=== PATIENT | female | born 1995 | race Caucasian/White ===

== ENCOUNTER 2022-06-20 15:14 | Inpatient (IN) | payer MEDICAID, SELFPAY ==
[2022-06-20] VITALS (12 sets, daily range): BP systolic 115–132; BP diastolic 64–84; PULSE 64–86; RESP 15–17; TEMP 36.5–36.9; O2SAT 97–99
[2022-06-20] MEDS: lactated ringers 1,000 ML 999 ML (15:15)
[2022-06-20] MEDS: ceFAZolin 2,000 MG in sodium chloride 0.9% (plus) 50 ML 100 MG IV (15:18)
[2022-06-20 15:40] LABS: Basophils % 0.1 %; Hematocrit 28.4 % (37.0-47.0); Hemoglobin 8.7 g/dL (11.5-15.3); Lymphocytes % 6.6 %; Mean Corpuscular HGB Conc 30.6 g/dL (30.0-36.0); Mean Corpuscular Hemoglobin 24.5 pg (28.0-34.0); Mean Platelet Volume 10.7 fL (7.4-10.4); Monocytes # 1.3 10^3/uL (0.2-0.9); Neutrophils # 13.22 10^3/uL (1.8-7.7); Neutrophils % 84.7 %; Nucleated Red Blood Cells % 0 %; Platelet Count 384 10^3/cmm (130-400); Red Blood Count 3.55 10^6/uL (4.1-5.3); Red Cell Distribution Width 14.5 % (12.1-15.1); White Blood Count 15.6 10^3/uL (4.0-10.0)
--- NOTE | 2022-06-20 15:57 | XRR_ITS ---
PROCEDURE INFORMATION: Exam: XR Abdomen Exam date and time: 06/20/2022 4:02 PM Age: 26 years old Clinical indication: Abdominal pain; Generalized; Prior surgery; Surgery date: Post-operative (0-2 days); Surgery type: Emergency c section; Additional info: Emergency csection TECHNIQUE: Imaging protocol: Radiologic exam of the abdomen. Views: Frontal supine view of the abdomen. 1 View. COMPARISON: No relevant prior studies available. FINDINGS: Gastrointestinal tract: Normal. No bowel dilation. Organs: Suspected enlarged likely post uterus seen over the lower abdomen and pelvis. Bones/joints: Unremarkable. XR/XR KUB portable [id number] IMPRESSION: No acute findings.
--- NOTE | 2022-06-20 16:33 | ANES.PREANE2 ---
Pre-Anesthetic Assessment Social No alcohol and No tobacco Exam alert, oriented x 3, clear to auscultation bilaterally and regular rate & rhythm Airway Submandibular: within normal limits Cervical ROM: within normal limits Mallampati: Class II Dentition: other (profound dental disease ) Pulmonary None reported CV/HEM None reported Anesthetic Plan ASA status: 2E Anesthesia: General Data Anesthesia 06/20/22 15:15 Short CBC 06/20/22 Range/Units 15:15 WBC 15.6 H (4.0-10.0) 10^3/uL Hgb 8.7 L (11.5-15.3) g/dL Hct 28.4 L (37.0-47.0) % MCV 80.0 L (81-99) fl Plt Count 384 (130-400) 10^3/cmm Neut % (Auto) 84.7 % Neut # (Auto) 13.22 H (1.8-7.7) 10^3/uL Blood Bank 06/20/22 15:15 Blood Type A Positive Rho(D) Type Positive Cardiac Studies: No Data to Display
--- NOTE | 2022-06-20 16:59 | PM.HP ---
Providers/Chief Complaint Admitting Physician: Shamika Lama MD Chief Complaint: possible labor History of Present Illness Krystle Samson is a 26 year old female with a history of 2 prior sections who presented to the ER complaining of body parts hanging out. She has had no care during this . She has no idea what her due date is. She has had 2 prior sections. Review of Systems General: Reports: Other ( parts hanging out the vagina, no vaginal bleeding, no loss of fluid, ) Medications/Allergies Allergies Allergy/AdvReac Type Severity Reaction Status Date / Time hydrocodone Allergy ADR-Depress Verified 06/20/22 20:28 ion Physical Exam Narrative: The patient is pale and cachectic with poor dentition. She is alert and oriented and answering questions appropriately. Her abdomen is obviously gravid and appears to be large enough for full term. Her labia were and there was a visible deep purple foot that was possibly encased in a thin membrane. I did not perform a manual exam to risk rupture of the membranes. Data 06/20/22 15:15 A&P Assessment and plan (1) Breech presentation of fetus palpable vaginally: heart tones were obtained by nursing near the fundus. Patient was taken back for emergency section. (2) History of 2 sections: Emergent repeat section (3) No care in current : The small portion of toes that I can see do appear , no further than 34 wks. Her abdomen is very protruberant and is consistent with term. we will need to draw labs. Attestations Medical Necessity Statement*: emergent surgery and postoperative care Coding Level of Care Code Acute Code for Chg Fwd Diagnoses Breech presentation of fetus palpable vaginally O32.1XX0 History of 2 sections Z98.891 No care in current O09.30
--- NOTE | 2022-06-20 17:08 | PM.OP ---
Operative Report Date of procedure: June 20, 2022 Pre-op diagnosis: Footling breech presentation with foot at the introitus History of prior section x 2 No care Anemia Post-op diagnosis: No care Emergent repeat low transverse section Monochorionic diamniotic twin gestation (estimated 26-28 weeks based on Frazier score) demise of twin A Footling breech presentation of twin A Viable premature twin B in vertex presentation Polyhydramnios of twin B Procedure done: Emergent low transverse section Via Pfannenstiel skin incision Specimens removed/disposition: Twin A female, premature demise with initial state of decomposition especially of head contents, estimated 26-28 weeks gestation. 740 grams Twin B female, premature, viable, estimated 26-28 week gestation (based on Frazier score). weight 2# 3.6 oz. Pathology: Monochorionic diamniotic placenta Surgeon: Shamika Lama MD Anesthesia: General Estimated blood loss (mL): 500 IV fluids (mL): 1,300 Urine output: navas placed after procedure ended Procedure: After informed consent the patient was taken to the OR where general anesthesia was administered. She was quickly prepped and draped in normal sterile fashion in dorsal supine position with a left lateral tilt. After general anesthesia was administered a Pfannenstiel skin incision was made and carried through sharply to the fascia. The fascia was then entered sharply using the blade. As soon as the fascia was entered the peritoneum began to bulge through it. There was definitely diastases of the rectus muscles. The fascia was grasped with Whitefield clamps and the underlying tissue was dissected off using the Mayos. The peritoneum was then entered bluntly using fingers and the incision site was manually stretched. The bladder was slightly bulging and the vesicouterine peritoneum was entered sharply using the Metzenbaums and a bladder flap was created digitally. The bladder was then pushed inferiorly under the bladder blade. Uterine incision was made in a transverse fashion in the lower uterine segment. Amniotic rupture of membranes was performed sharply and a small amount of purple-tinged fluid was released. The 's back was facing up, visible a deep purple, and I immediately followed it down around the buttocks to grab a hold of both legs. The infant was then delivered all at once with only slight fundal pressure. Upon delivery it was obvious that the infant had been for a while as the skull was both flattened and boggy. There was no movement and no sign of life. The entire infant was a very deep purple color. The cord was clamped and cut and the was handed to the waiting pediatric doctor. Dr. Montelongo and his team initially started resuscitation but I informed them that the was already decomposing and there were visible clots within the umbilical cord. At that time Dr. Montelongo confirmed there was no heartbeat. It was obvious there was a second bulging bag of fluid from the uterus. I waited briefly to rupture the membranes to allow the pediatric team to ready themselves for a second delivery. Amniotic rupture of membranes was performed sharply using an Allis clamp and a very large amount of yellow-tinged fluid came pouring out. Twin B was in vertex position and was easily delivered delivered vertex with out any complication. The cord was clamped and cut and the was gently handed off to the waiting pediatric team. We tried to obtain cord blood pH but unfortunately did not get enough of a sample. Traction was placed on cord B to help deliver the placenta but immediately avulsed. The placenta was then manually extracted and later observed to be dichorionic, monoamniotic. Once the placenta delivered the uterus was exteriorized from the abdomen and a dry sponge was used to clear the uterus of clots and debris. Uterine incision was repaired using 0 chromic in a running locked fashion. A second layer of the same suture was used in an imbricating manner. Excellent hemostasis was obtained. The uterus was then returned to the abdomen. Irrigation was used to Clear the gutters of clots and debris and the uterine incision was reinspected for hemostasis. The peritoneum was gently reapproximated in an interrupted fashion using 4-0 Vicryl. The fascia was then reapproximated using 0 Vicryl in a running fashion. The subcutaneous tissue was irrigated and reapproximated using 4-0 Vicryl. At this point a sterile glue drape was placed over the incision site and an x-ray was performed in place of instrument count. I visualized the x-ray to be free of any foreign bodies. The skin was then reapproximated using ximena. A pressure bandage was applied. After the procedure ended but before the patient was awakened nursing placed a Navas. Apple juice colored urine was present. Patient was awakened to the OR and went to recovery in stable considiton.
[2022-06-20 17:25] LABS: Amphetamines Screen Urine Negative (Negative); Barbiturates Screen Urine Negative (Negative); Benzodiazepines Screen Urine Negative (Negative); Cocaine Screen Urine Negative (Negative); Opiate Screen Urine Negative (Negative); PCP Screen Urine Negative (Negative); THC Screen Urine Negative (Negative)
--- NOTE | 2022-06-20 20:29 | PC.NURSE ---
1505 - Dr. Lama notified of patient arrival and vaginal exam. 1505 - Anesthesia notified of emergent 1509 - Dr. Montelongo notified of emergent 1515 - Respiratory notified of emergent 1515 - Room time in OR.
--- NOTE | 2022-06-20 20:34 | PC.NURSE ---
1505 - Cervical exam Dayanna Alvarez RN went to perform an SVE and noted a footling presentation. parts and amniotic sack visible.
[2022-06-21 00:24] VITALS: BP 128/70; PULSE 69; RESP 16; TEMP 36.9; O2SAT 97
[2022-06-21] MEDS: ketorolac 30 mg/mL INJ IVP ×3 (01:21→13:54)
[2022-06-21 02:26] VITALS: BP 104/63; PULSE 80; RESP 16; TEMP 37; O2SAT 97
[2022-06-21] MEDS: HYDROcodone-acetaminophen 5-325 mg Tablet PO ×4 (02:42→22:38)
[2022-06-21 03:09] VITALS: BP 117/69; PULSE 81
--- NOTE | 2022-06-21 03:10 | PC.NURSE ---
patient called out this nurse responded to room. Patient stated she felt a gush while sitting in the chair, observed a moderate amount of blood on chux pad. assisted patient back to bed, during transfer patient felt unstable, once back in bed fundal massage was preformed uterus was firm with massage and bleeding at that time was scant. Telfa, ABD and foam tape were found to be falling off, dressing removed and replaced with new Telfa, ABD and foam tape. patient resting comfortably at this time.
[2022-06-21] MEDS: sodium chloride 0.9% 500 ML 999 ML IV (07:00)
[2022-06-21] MEDS: prenatal vitamin Capsule 1 CAP PO (07:38)
[2022-06-21] MEDS: ferrous sulfate EC 325 mg Tablet PO ×2 (07:38→18:37)
[2022-06-21] MEDS: dextrose 5%-lactated ringers 1,000 ML 125 ML IV ×2 (07:38→13:56)
[2022-06-21 08:18] LABS: HIV 1 & 2 Antibody Non-Reactive (Non-Reactiv); HIV 1 & 2 Antigen Non-Reactive (Non-Reactiv)
[2022-06-21 08:19] LABS: Hepatitis B Surface Antigen Non-Reactive (Nonreactive); Rubella IgG 10.3 IU/mL (0.0-10.0)
[2022-06-21 08:24] LABS: Rapid Plasma Reagin Syphilis Nonreactive (Nonreactive)
[2022-06-21 08:33] LABS: Hematocrit 23.7 % (37.0-47.0); Hemoglobin 7.1 g/dL (11.5-15.3); Mean Corpuscular Hemoglobin 24.2 pg (28.0-34.0); Mean Corpuscular Volume 80.9 fl (81-99); Mean Platelet Volume 10.9 fL (7.4-10.4); Platelet Count 258 10^3/cmm (130-400); Red Blood Count 2.93 10^6/uL (4.1-5.3); Red Cell Distribution Width 14.6 % (12.1-15.1); White Blood Count 10.8 10^3/uL (4.0-10.0)
--- NOTE | 2022-06-21 09:15 | PC.NURSE ---
Sara with [facility] DFS to patient bedside for rounding. Safety care plan with patient made by hr assistant. Patient is to have follow up care set up at discharge. This RN spoke with [facility] social services assistant to establish medicaid. Keena with states she will find out if patient will need a consult from her or if an email sent to medicaid office and follow up phone call to patient made will be done. She will call back to OB department and follow up. LISA LIMA
[2022-06-21 10:30] VITALS: BP 133/76; PULSE 80; RESP 16; TEMP 36.5; O2SAT 98
[2022-06-21 15:57] VITALS: BP 113/74; PULSE 58; TEMP 36.4; O2SAT 99
--- NOTE | 2022-06-21 17:53 | PM.PN ---
Subjective Subjective: POD #1 ambulating, taking liquids but has not passed flatus. Vitals/I&O/Wt Last Vital Signs Temp 97.5 F L 06/21/22 15:57 Pulse 58 L 06/21/22 15:57 Resp 16 06/21/22 10:30 BP 113/74 06/21/22 15:57 Pulse Ox 99 06/21/22 15:57 O2 Del Method 06/21/22 15:57 06/21/22 06/21/22 06/21/22 06:59 14:59 22:59 Intake Total 787.5 / 787.5 Output Total 675 / 1125 350 / 350 50 / 400 Balance -675 / -25 437.5 / 437.5 -50 / 387.5 Physical Exam Narrative: Alert and oriented sitting up in bed, drinking water. Heart regular rate and rhythm, lungs clear to auscultation bilaterally, abdomen is soft, fundus is firm, tenderness is out of proportion as she flinches before my hand even touches her abdomen. No calf tenderness, no edema Data 06/21/22 06:54 Micro: Microbiology 06/20/22 14:25 Chlamydia trachomatis (TERESA) - Final Urine Random Neisseria gonorrhoeae (TERESA) - Final A&P Assessment and plan (1) Status post repeat low transverse section: Encourage ambulation, encourage clear liquids with calories such as Sprite and chicken broth. Routine postoperative care (2) No care in current : (3) , twin with loss of one fetus, delivered: (4) Breech presentation of fetus palpable vaginally: (5) History of 2 sections: (6) Anemia: Bleeding has been light to average. She was anemic upon presentation. She has not had any tachycardia or dizziness. Attestations Medical Necessity Statement*: Routine postoperative and care Coding Level of Care Code Acute Code for Chg Fwd Diagnoses Status post repeat low transverse section Z98.891 No care in current O09.30 , twin with loss of one fetus, delivered Breech presentation of fetus palpable vaginally O32.1XX0 History of 2 sections Z98.891 Anemia D64.9
[2022-06-21] MEDS: docusate sodium 100 mg Capsule PO (18:37)
[2022-06-21] MEDS: simethicone 80 mg Chew PO (21:48)
[2022-06-21 22:27] VITALS: BP 118/76; PULSE 61; RESP 16; TEMP 36.6
--- NOTE | 2022-06-22 01:01 | PC.NURSE ---
16 fr latex urinary catheter removed 06/20/22 at 2227. 10 mL removed from balloon, catheter intact. 200 mL urine out at time of removal. Patient tolerated well.
[2022-06-22] MEDS: HYDROcodone-acetaminophen 5-325 mg Tablet PO ×3 (03:54→13:55)
[2022-06-22 03:55] VITALS: BP 120/75; PULSE 85; RESP 16; TEMP 36.5
[2022-06-22] MEDS: prenatal vitamin Capsule 1 CAP PO (08:19)
[2022-06-22] MEDS: docusate sodium 100 mg Capsule PO (08:19)
[2022-06-22] MEDS: ferrous sulfate EC 325 mg Tablet PO ×2 (08:19→16:22)
[2022-06-22 10:35] VITALS: BP 118/82; PULSE 88; RESP 16; TEMP 36.4; O2SAT 97
[2022-06-22] MEDS: ibuprofen 800 mg tablet PO ×2 (10:36→16:22)
--- NOTE | 2022-06-22 12:58 | P.DS_ITS ---
Discharge Providers Date of Admission: 06/20/22 15:14 Date of Discharge: June 22, 2022 Attending Provider at Admission: Shamika Lama MD Attending Provider at Discharge: Shamika Lama MD Diagnoses at Discharge Discharge Diagnosis (1) Status post repeat low transverse section: Status: Acute (2) No care in current : Status: Acute (3) , twin with loss of one fetus, delivered: Status: Acute (4) Breech presentation of fetus palpable vaginally: Status: Acute (5) History of 2 sections: Status: Acute (6) Anemia: Status: Acute Reason for Visit Reason for Visit: possible labor Hospital Course Hospital Course This is a 26-year-old G3 now P2103 with no care and history of prior sections, who presented complaining of body parts in the vagina. She underwent an emergent repeat low transverse section with delivery of twins. Twin A was demise, footling breech presentation. Twin B was vertex estimated between 26 and 28 weeks gestation and was born viable and shipped to [facility] in [place]. Placentation appeared to be monochorionic diamniotic. Mother did okay postoperatively. Of note she was very pale and cachectic upon admission. Her initial hemoglobin was 8.7 prior to surgery. She has not eaten any significant hospital food but has been seen snacking on Shirley butters. Her pain has been controlled on pain medication and she has ambulated in the hallway. Physical Exam Narrative: Pale and cachectic sitting up in bed with visitors. Heart regular rate and rhythm, lungs clear to auscultation bilaterally, abdomen is soft with appropriate postoperative tenderness, incision is clean dry and intact, extremities have no edema no calf tenderness Discharge Data Studies Completed and Pending Completed Studies During Hospitalization Category Date Time Status XR KUB portable [id number] Stat Exams 06/20/22 15:57 Completed Pending at discharge Category Date Time Status Pathology: Surgical [PTH] Routine Pth 06/20/22 15:37 Received Radiology Impressions KUB X-Ray 06/20/22 15:57 IMPRESSION: No acute findings. Laboratory Results WBC 10.8 10^3/uL (4.0-10.0) H 06/21/22 06:54 RBC 2.93 10^6/uL (4.1-5.3) L 06/21/22 06:54 Hgb 7.1 g/dL (11.5-15.3) L 06/21/22 06:54 Hct 23.7 % (37.0-47.0) L 06/21/22 06:54 MCV 80.9 fl (81-99) L 06/21/22 06:54 MCH 24.2 pg (28.0-34.0) L 06/21/22 06:54 MCHC 30.0 g/dL (30.0-36.0) 06/21/22 06:54 RDW 14.6 % (12.1-15.1) 06/21/22 06:54 Plt Count 258 10^3/cmm (130-400) D 06/21/22 06:54 MPV 10.9 fL (7.4-10.4) H 06/21/22 06:54 Neut % (Auto) 84.7 % 06/20/22 15:15 Lymph % (Auto) 6.6 % 06/20/22 15:15 [place] % (Auto) 8.0 % 06/20/22 15:15 Eos % (Auto) 0.0 % 06/20/22 15:15 Baso % (Auto) 0.1 % 06/20/22 15:15 Neut # (Auto) 13.22 10^3/uL (1.8-7.7) H 06/20/22 15:15 Lymph # (Auto) 1.0 10^3/uL (0.8-4.8) 06/20/22 15:15 [place] # (Auto) 1.3 10^3/uL (0.2-0.9) H 06/20/22 15:15 Eos # (Auto) 0.0 10^3/uL (0.0-0.8) 06/20/22 15:15 Baso # (Auto) 0.0 10^3/uL (0.0-0.1) 06/20/22 15:15 Nucleated RBC % (auto) 0 % 06/20/22 15:15 Nucleated RBCs # 0.0 /100WBC 06/20/22 15:15 Urine Opiates Screen Negative ng/mL (Negative) 06/20/22 14:25 Ur Barbiturates Screen Negative ng/mL (Negative) 06/20/22 14:25 Ur Phencyclidine Scrn Negative ng/mL (Negative) 06/20/22 14:25 Ur Amphetamines Screen Negative ng/mL (Negative) 06/20/22 14:25 U Benzodiazepines Scrn Negative ng/mL (Negative) 06/20/22 14:25 Urine Cocaine Screen Negative ng/mL (Negative) 06/20/22 14:25 U Marijuana (THC) Screen Negative ng/mL (Negative) 06/20/22 14:25 RPR Nonreactive (Nonreactive) 06/21/22 06:54 Hep Bs Antigen Cancelled 06/21/22 06:54 Hep Bs Antigen Non-reactive (Nonreactive) 06/21/22 06:54 HIV 1&2 Ab & HIV 1 Ag Non-reactive (Non-Reactiv) 06/21/22 06:54 HIV 1&2 Antibody Non-reactive (Non-Reactiv) 06/21/22 06:54 Rubella IgG Antibody 10.3 IU/mL (0.0-10.0) H 06/21/22 06:54 Blood Type A Positive 06/20/22 15:15 Rho(D) Type Positive 06/20/22 15:15 Antibody Screen Positive 06/20/22 15:15 Antibody Identification Anti-c 06/20/22 15:15 Vitals Last Vital Signs Temp 97.6 F 06/22/22 10:35 Pulse 88 06/22/22 10:35 Resp 16 06/22/22 10:35 BP 118/82 06/22/22 10:35 Pulse Ox 97 06/22/22 10:35 O2 Del Method 06/22/22 10:35 Discharge Plan Discharge Patient Disposition: Home Condition: Stable Prescriptions: New ibuprofen 800 mg Tablet 800 mg PO TID PRN (Reason: Abdominal Discomfort) Qty: 40 0RF hydrocodone-acetaminophen 5-325 mg Tablet 1 - 2 tab PO Q4H PRN (Reason: Moderate To Severe Pain) Qty: 15 0RF docusate sodium 100 mg Capsule 100 mg PO BID Qty: 60 0RF ferrous sulfate 325 mg (65 mg iron) Tablet,Delayed Release (Dr/Ec) 325 mg PO BIDWM Qty: 60 2RF Discharge Orders: Discharge Order (Routine); Ordered 06/22/22 Ordered By: Shamika Lama Referrals: Shamika Lama MD [Physician] - 1 week Royer Espinosa MD [Physician] - 06/29/22 10:00 am Discharge Diet: Usual diet Discharge Activity: Limit activity as instructed Patient Instructions: Opioid Safety Activity Restrictions/Additional Instructions: Post- section handout. Discharge Attestations Time Spent in Discharge Care*: less than 30 min Quality Metrics Clinical Quality Measures [ No reported AMI, CVA or VTE this stay] Coding Level of Care Code Acute Code for Chg Fwd Diagnoses Status post repeat low transverse section Z98.891 No care in current O09.30 , twin with loss of one fetus, delivered Breech presentation of fetus palpable vaginally O32.1XX0 History of 2 sections Z98.891 Anemia D64.9
[2022-06-22 16:27] VITALS: BP 125/88; PULSE 92; RESP 16; TEMP 36.7; O2SAT 97
[2022-06-22 16:30] VITALS: BP 125/88; PULSE 92; RESP 16; TEMP 36.7; O2SAT 97
--- NOTE | 2022-06-29 12:41 | PC.NURSE ---
Per Dr. Lama orders received to call patient to notify of antibody screen being positive. Krystle called and notified of antibody results. Patient verbalized understanding of the importance of receiving care for future pregnancies. LISA LIMA
== END 2022-06-22 16:35 | disposition home or self-care (01) | DRG 788 ==
PROVIDERS: Admitting Provider Family Medicine; Family Provider Family Medicine; Visit Provider Family Medicine
PROC: 10D00Z1 Extraction of Products of Conception, Low, Open Approach (ICD-10-PCS; CPT 59514; principal; 2022-06-20 15:15)
DX: O32.8XX1 Maternal care for other malpresentation of fetus, fetus 1 (principal); O99.02 Anemia complicating childbirth; D64.9 Anemia, unspecified; O40.9 Polyhydramnios, unspecified trimester; O30.049 Twin pregnancy, dichorionic/diamniotic, unspecified trimester; Z3A.00 Weeks of gestation of pregnancy not specified; Z37.3 Twins, one liveborn and one stillborn; O34.211 Maternal care for low transverse scar from previous cesarean delivery
CPT/HCPCS: 36415; 59409; 74018; 80306; 80503; 85025; 85027; 86592; 86762; 86850; 86870; 86900; 87340; 87491; 87591; 87806; 88307; 99211; J0330; J0690; J1170; J1885; J2590; J2704; J3010; J7030; J7040; J7120; J7121

== ENCOUNTER → 2022-06-29 10:50 | Outpatient (BNVA) | payer MEDICAID, SELFPAY | PROVIDERS: Family Provider Family Medicine; Visit Provider Family Medicine | DX: D64.9 Anemia, unspecified (principal); M79.89 Other specified soft tissue disorders; F53.0 Postpartum depression; Z98.891 History of uterine scar from previous surgery; Z79.899 Other long term (current) drug therapy | CPT/HCPCS: 80053; 82728; 83550; 84439; 84443; 85025 ==

== ENCOUNTER → 2022-07-13 11:52 | Outpatient (BNVA) | payer MEDICAID, SELFPAY | PROVIDERS: Family Provider Family Medicine; PCP Family Medicine; Visit Provider Family Medicine | DX: Z39.2 Encounter for routine postpartum follow-up (principal); D64.9 Anemia, unspecified; F53.0 Postpartum depression; M79.89 Other specified soft tissue disorders; Z98.891 History of uterine scar from previous surgery | CPT/HCPCS: 80053; 83540; 85025 ==

== ENCOUNTER 2023-01-05 19:10 | Emergency (ER) | payer MEDICAID, SELFPAY ==
[2023-01-05 19:15] VITALS: BP 128/80; PULSE 87; RESP 16; TEMP 36.8; O2SAT 98; BMI 19.1
--- NOTE | 2023-01-05 19:28 | W.ED.COVID ---
HPI - COVID General: Chief Complaint: COVID symptoms Stated Complaint: Fever, body ache, congestion Time Seen by Provider: 01/05/23 19:11 Source: patient Mode of arrival: ambulatory Limitations: no limitations History of Present Illness: 19-year-old female states she has had nasal congestion sore throat ear pain slight cough over the last 2 weeks. She denies any shortness of breath she has had subjective fevers she is afebrile here she is in no distress here denies any vomiting or diarrhea. COVID 19 common symptoms: positive fever(s), non-productive cough, body aches and throat pain; negative chills, dyspnea, headache(s), nausea, vomiting or diarrhea COVID 19 other sytmptoms: negative chest pain COVID Results: No Data to Display Review of Systems Const: Reports: fever(s) and body aches; Denies: chills or change in appetite Eyes: Denies: blurry vision or eye discomfort ENMT: Reports: throat pain; Denies: dental pain Card: Denies: chest pain Resp: Reports: non-productive cough; Denies: dyspnea GI: Denies: abdominal pain, nausea, vomiting or diarrhea Musc: Denies: neck pain or back pain Skin/Breast: Denies: rash Neuro: Denies: headache(s) PFSH ED PFSH: Medical History Psychiatric care Surgical History History of 3 sections Family History Other Hyperlipidemia Hypertension Lung disease Stroke Denies family history of Diabetes CAD (coronary artery disease) Clotting disorder Dementia Psychiatric illness Chronic kidney disease (CKD) Anesthesia complication Bleeding disorder Cancer Social History Smoking and tobacco/nicotine status: never used tobacco/nicotine Alcohol intake: never Substance/Drug Use: never Lives independently: Yes Marital status: Number of children: 2 Current occupational status: unemployed Special betty needs: No Agree to transfusion: Yes Physical Exam Const: COMMON NORMALS: no acute distress, patient oriented x3 and healthy appearing HENMT: COMMON NORMALS: normocephalic, atraumatic, TM's normal bilaterally and Normal external nose present HEAD & SCALP: normocephalic and atraumatic NOSE: Normal external nose present TYMPANIC MEMBRANE: TM's normal bilaterally MOUTH: Normal oral and palatal mucosa present THROAT: posterior oropharynx normal Eye: COMMON NORMALS: Equal, round and reactive pupils present and EOMs intact bilaterally PUPIL: Yes Equal, round and reactive pupils present Neck/C-Spine: COMMON NORMALS: full ROM and supple Chest: COMMONS NORMALS: normal inspection of the chest Resp: COMMON NORMALS: normal respiratory effort, No retractions, No use of accessory muscles and clear to auscultation bilaterally AUSCULTATION: clear to auscultation bilaterally Cardio: COMMON NORMALS: regular rate, regular rhythm and No murmurs present (Cardio) RATE: regular rate RHYTHM: regular rhythm Extremity: COMMON NORMALS: normal to inspection and full ROM Neuro: COMMON NORMALS: patient oriented x3, moves all extremities and no focal motor deficits Psych: COMMON NORMALS: mental status grossly normal, Normal thought process present and cooperative THOUGHT PROCESS: Normal thought process present Skin: COMMON NORMALS: no rashes or lesions noted and no wounds GENERAL SKIN EXAM: no rashes or lesions noted Course Vital Signs: Vital signs: Vital Signs Temperature 98.3 F 01/05/23 19:15 Pulse Rate 87 01/05/23 19:15 Respiratory Rate 16 01/05/23 19:15 Blood Pressure 128/80 01/05/23 19:15 Pulse Oximetry 98 01/05/23 19:15 Oxygen Delivery Me thod Room Air 01/05/23 19:15 MDM - COVID Medical Decision Making Patient presents here with upper respiratory infection she is well-appearing here no signs of pneumonia exam is benign she is stable for discharge viral panel is pending did give her Decadron here Medical Records I reviewed the patient's medical records. Lab Data I reviewed the patient's lab results. No Data to Display No radiology studies performed this visit Discharge Plan Discharge Patient Disposition: Home Clinical Impression: Upper respiratory infection Condition: Stable Prescriptions: No Action Women's Multivitamin Gummies 200 mcg tablet,chewable PO fluoxetine 20 mg tablet 20 mg PO DAILY Qty: 90 1RF ibuprofen 800 mg Tablet 800 mg PO TID PRN (Reason: Abdominal Discomfort) Qty: 40 0RF docusate sodium 100 mg Capsule 100 mg PO BID Qty: 60 0RF ferrous sulfate 325 mg (65 mg iron) Tablet,Delayed Release (Dr/Ec) 325 mg PO BIDWM Qty: 60 2RF Discharge Orders: Discharge ED (Routine); Ordered 01/05/23 Ordered By: Arnulfo Anderson Referrals: Royer Espinosa MD [Primary Care Provider] - 1-3 days Discharge Diet: Advance as tolerated Discharge Activity: Resume usual activity Patient Instructions: Upper Respiratory Infection (ED) Coding Level of Care Code ED Physician Assistant Surgery for Filemon Peres
[2023-01-05] MEDS: dexamethasone 10 mg/mL INJ IM (19:33)
[2023-01-05 19:40] VITALS: O2SAT 97
[2023-01-05 19:44] VITALS: BP 128/80; PULSE 87; RESP 16; TEMP 36.8; O2SAT 97
[2023-01-05 21:33] LABS: Adenovirus Not Detected (NOT DETECT); Chlamydia Pneumoniae Not Detected (NOT DETECT); Coronavirus 229E,HKU1,NL63,OC4 Not Detected (NOT DETECT); Human Metapneumovirus Not Detected (NOT DETECT); Human Rhinovirus/Enterovirus Detected (NOT DETECT); Influenza A Not Detected (NOT DETECT); Influenza A H1 Not Detected (NOT DETECT); Influenza A H1-2009 Not Detected (NOT DETECT); Influenza A H3 Not Detected (NOT DETECT); Influenza B Not Detected (NOT DETECT); Mycoplasma Pneumoniae Not Detected (NOT DETECT); Parainfluenza Virus Type 1 Not Detected (NOT DETECT); Parainfluenza Virus Type 2 Not Detected (NOT DETECT); Parainfluenza Virus Type 3 Not Detected (NOT DETECT); Parainfluenza Virus Type 4 Not Detected (NOT DETECT); Respiratory Syncytial Virus A Not Detected (NOT DETECT); Respiratory Syncytial Virus B Not Detected (NOT DETECT); SARS-COV-2 Not Detected (NOT DETECT)
== END 2023-01-05 19:45 | disposition home or self-care (01) ==
PROVIDERS: Emergency Provider Emergency Medicine; PCP Family Medicine
DX: J06.9 Acute upper respiratory infection, unspecified (principal)
CPT/HCPCS: 87486; 87581; 87633; 96372; 99284; J1100

== ENCOUNTER → 2023-01-20 14:24 | Outpatient (BNVA) | payer MEDICAID, SELFPAY | PROVIDERS: PCP Family Medicine; Visit Provider Family Medicine | DX: Z32.00 Encounter for pregnancy test, result unknown (principal); F53.0 Postpartum depression | CPT/HCPCS: 81025; 84702 ==

== ENCOUNTER → 2023-01-28 13:00 | Outpatient (BNVA) | payer MEDICAID, SELFPAY | PROVIDERS: PCP Family Medicine; Visit Provider Nurse Practitioner Women's Health | DX: Z32.00 Encounter for pregnancy test, result unknown (principal) | CPT/HCPCS: 81025 ==

== ENCOUNTER → 2023-02-26 12:53 | Outpatient (BNVA) | payer MEDICAID, SELFPAY | PROVIDERS: PCP Family Medicine; Visit Provider Obstetrics & Gynecology | DX: Z36.87 Encounter for antenatal screening for uncertain dates (principal) | CPT/HCPCS: 76801; 80307; 84315; 85025; 86592; 86762; 86803; 86850; 86870; 86900; 87086; 87340; 87491; 87530; 87591 ==

== ENCOUNTER → 2023-03-04 11:57 | Outpatient (BNVA) | payer MEDICAID, SELFPAY | PROVIDERS: PCP Family Medicine; Visit Provider Obstetrics & Gynecology | DX: Z34.90 Encounter for supervision of normal pregnancy, unspecified, unspecified trimester (principal) | CPT/HCPCS: 84315; 87491; 87591; 88175 ==

== ENCOUNTER → 2023-03-05 17:45 | Outpatient (BNVA) | payer MEDICAID, SELFPAY | PROVIDERS: PCP Family Medicine; Visit Provider Obstetrics & Gynecology | DX: Z34.90 Encounter for supervision of normal pregnancy, unspecified, unspecified trimester (principal) | CPT/HCPCS: 80503 ==

== ENCOUNTER → 2023-04-22 09:38 | Outpatient (BNVA) | payer MEDICAID, SELFPAY | PROVIDERS: PCP Family Medicine; Visit Provider Obstetrics & Gynecology | DX: Z34.90 Encounter for supervision of normal pregnancy, unspecified, unspecified trimester (principal) | CPT/HCPCS: 76805; 84315 ==

== ENCOUNTER → 2023-05-06 09:36 | Outpatient (BNVA) | payer MEDICAID, SELFPAY | PROVIDERS: PCP Family Medicine; Visit Provider Obstetrics & Gynecology | DX: Z34.90 Encounter for supervision of normal pregnancy, unspecified, unspecified trimester (principal) | CPT/HCPCS: 76816 ==

== ENCOUNTER → 2023-05-19 07:56 | Outpatient (BNVA) | payer MEDICAID, SELFPAY | PROVIDERS: PCP Family Medicine; Visit Provider Nurse Practitioner Women's Health | DX: Z34.80 Encounter for supervision of other normal pregnancy, unspecified trimester | CPT/HCPCS: 82950; 84315 ==

== ENCOUNTER → 2023-06-17 08:02 | Outpatient (BNVA) | payer MEDICAID, SELFPAY | PROVIDERS: PCP Family Medicine; Visit Provider Obstetrics & Gynecology | DX: Z34.83 Encounter for supervision of other normal pregnancy, third trimester (principal) | CPT/HCPCS: 76815; 76819; 84315; 85025 ==

== ENCOUNTER 2023-06-22 08:10 | Outpatient (CLI) | payer MEDICAID, SELFPAY ==
[2023-06-22 08:19] VITALS: BP 116/67; PULSE 81
[2023-06-22 08:34] VITALS: BP 110/72; PULSE 86
[2023-06-22 08:35] VITALS: RESP 15; TEMP 36.6; TEMP 36.7; BMI 23.6
[2023-06-22 08:49] VITALS: BP 118/59; PULSE 77
[2023-06-22 09:15] VITALS: BP 118/59; PULSE 77; RESP 15; TEMP 36.6
== END 2023-06-22 09:15 ==
LOC: OPOB 08:11 → OBGYN 08:12
PROVIDERS: PCP Family Medicine; Visit Provider Obstetrics & Gynecology
DX: O26.899 Other specified pregnancy related conditions, unspecified trimester (principal); Z3A.00 Weeks of gestation of pregnancy not specified; Z87.59 Personal history of other complications of pregnancy, childbirth and the puerperium
CPT/HCPCS: 59025; 76819

== ENCOUNTER 2023-06-25 08:48 | Outpatient (CLI) | payer MEDICAID, SELFPAY ==
[2023-06-25 08:50] VITALS: BMI 23.8
[2023-06-25 09:14] VITALS: BP 121/58; PULSE 96
[2023-06-25 09:28] VITALS: BP 110/61; PULSE 88
[2023-06-25 09:46] VITALS: BP 110/61; PULSE 88; RESP 18
== END 2023-06-25 09:45 | disposition home or self-care (01) ==
LOC: OPOB 08:49 → OBGYN 08:50
PROVIDERS: PCP Family Medicine; Visit Provider Obstetrics & Gynecology
DX: O26.899 Other specified pregnancy related conditions, unspecified trimester (principal); Z3A.00 Weeks of gestation of pregnancy not specified; Z87.59 Personal history of other complications of pregnancy, childbirth and the puerperium
CPT/HCPCS: 59025; 99211

== ENCOUNTER 2023-06-30 08:54 | Outpatient (CLI) | payer MEDICAID, SELFPAY ==
[2023-06-30 08:54] VITALS: RESP 17; BMI 24.0
[2023-06-30 09:20] VITALS: BP 116/66; PULSE 80
--- NOTE | 2023-06-30 10:52 | US_ITS ---
WS: [id number] BIOPHYSICAL PROFILE AMNIOTIC FLUID HISTORY: Non-reactive NST; History of demise COMPARISON: 06/22/2023 position: Breech Cardiac activity: 139 bpm. Cervix: closed. Placenta: Fundal Placenta grade: 2 Known two-vessel umbilical cord. Parameters are as follows: Breathin Movement: 2 Tone: 2 Fluid volume: 2 Amniotic Fluid Index: 15.7 cm. IMPRESSION: 1. Biophysical profile score: 8/8. 2. Normal amniotic fluid. 3. Breech.
[2023-06-30 11:17] VITALS: BP 122/66; PULSE 82
== END 2023-06-30 11:17 | disposition home or self-care (01) ==
LOC: OPOB 09:10 → OBGYN 09:12
PROVIDERS: Absent Provider Obstetrics & Gynecology; PCP Family Medicine; Visit Provider Obstetrics & Gynecology
DX: O26.899 Other specified pregnancy related conditions, unspecified trimester (principal); Z3A.00 Weeks of gestation of pregnancy not specified; Z87.59 Personal history of other complications of pregnancy, childbirth and the puerperium
CPT/HCPCS: 59025; 76819

== ENCOUNTER 2023-07-03 10:40 | Outpatient (CLI) | payer MEDICAID, SELFPAY ==
[2023-07-03 10:40] VITALS: BMI 23.8
[2023-07-03 10:53] VITALS: BP 118/64; PULSE 112
[2023-07-03 11:08] VITALS: BP 112/68; PULSE 118
[2023-07-03 11:23] VITALS: BP 109/64; PULSE 99
[2023-07-03 13:23] VITALS: BP 109/64; PULSE 99
== END 2023-07-03 11:45 | disposition home or self-care (01) ==
LOC: OPOB 10:45 → OBGYN 10:47
PROVIDERS: PCP Family Medicine; Visit Provider Obstetrics & Gynecology
DX: O26.899 Other specified pregnancy related conditions, unspecified trimester (principal); Z3A.00 Weeks of gestation of pregnancy not specified
CPT/HCPCS: 59025

== ENCOUNTER 2023-07-05 12:07 | Outpatient (CLI) | payer MEDICAID, SELFPAY ==
[2023-07-05 12:07] VITALS: BMI 23.7
[2023-07-05 12:15] VITALS: BP 113/63; PULSE 91
[2023-07-05 12:35] VITALS: BP 160/58; PULSE 98
[2023-07-05 12:55] VITALS: BP 160/58; PULSE 98; RESP 16
== END 2023-07-05 12:55 | disposition home or self-care (01) ==
LOC: OPOB 12:09 → OBGYN 12:10
PROVIDERS: PCP Family Medicine; Visit Provider Obstetrics & Gynecology
DX: O26.899 Other specified pregnancy related conditions, unspecified trimester (principal); Z3A.00 Weeks of gestation of pregnancy not specified; Z87.59 Personal history of other complications of pregnancy, childbirth and the puerperium
CPT/HCPCS: 59025; 99211

== ENCOUNTER → 2023-07-07 08:45 | Outpatient (BNVA) | payer MEDICAID, SELFPAY | PROVIDERS: PCP Family Medicine; Visit Provider Obstetrics & Gynecology | DX: Z34.80 Encounter for supervision of other normal pregnancy, unspecified trimester (principal) | CPT/HCPCS: 76819 ==

== ENCOUNTER 2023-07-14 08:29 | Outpatient (CLI) | payer MEDICAID, SELFPAY ==
[2023-07-14 08:25] VITALS: BMI 24.0
[2023-07-14 08:34] VITALS: BP 127/65; PULSE 81
[2023-07-14 08:54] VITALS: BP 130/73; PULSE 93
[2023-07-14 09:14] VITALS: BP 120/77; PULSE 105
[2023-07-14 09:34] VITALS: BP 134/65; PULSE 84
[2023-07-14 09:45] VITALS: BP 134/65; PULSE 84; RESP 16
== END 2023-07-14 09:45 | disposition home or self-care (01) ==
LOC: OPOB 08:30 → OBGYN 08:30
PROVIDERS: PCP Family Medicine; Visit Provider Obstetrics & Gynecology
DX: O26.899 Other specified pregnancy related conditions, unspecified trimester (principal); Z3A.00 Weeks of gestation of pregnancy not specified; Z87.59 Personal history of other complications of pregnancy, childbirth and the puerperium
CPT/HCPCS: 59025; 99211

== ENCOUNTER → 2023-07-15 09:01 | Outpatient (BNVA) | payer MEDICAID, SELFPAY | PROVIDERS: PCP Family Medicine; Visit Provider Obstetrics & Gynecology | DX: Z34.80 Encounter for supervision of other normal pregnancy, unspecified trimester (principal) | CPT/HCPCS: 76815; 76819; 84315 ==

== ENCOUNTER 2023-07-19 11:00 | Outpatient (CLI) | payer SELFPAY ==
[2023-07-19 11:08] VITALS: BP 105/60; PULSE 85
[2023-07-19 11:22] VITALS: BP 98/60; PULSE 86
[2023-07-19 11:30] VITALS: BMI 24.3
[2023-07-19 11:37] VITALS: BP 97/58; PULSE 75
== END 2023-07-19 11:42 | disposition home or self-care (01) ==
LOC: OPOB 11:00 → OBGYN 11:01
PROVIDERS: PCP Family Medicine; Visit Provider Obstetrics & Gynecology
DX: O26.899 Other specified pregnancy related conditions, unspecified trimester (principal); Z3A.00 Weeks of gestation of pregnancy not specified; Z87.59 Personal history of other complications of pregnancy, childbirth and the puerperium
CPT/HCPCS: 59025

== ENCOUNTER → 2023-07-22 08:41 | Outpatient (BNVA) | payer SELFPAY | PROVIDERS: PCP Family Medicine; Visit Provider Obstetrics & Gynecology | DX: Z34.80 Encounter for supervision of other normal pregnancy, unspecified trimester (principal) | CPT/HCPCS: 76819 ==

== ENCOUNTER 2023-07-22 13:14 | Outpatient (CLI) | payer SELFPAY ==
[2023-07-22 13:10] VITALS: BMI 24.7
[2023-07-22 13:18] VITALS: BP 133/65; PULSE 97
[2023-07-22 13:37] VITALS: BP 114/60; PULSE 83
== END 2023-07-22 13:40 | disposition home or self-care (01) ==
LOC: OPOB 13:14 → OBGYN 13:16
PROVIDERS: PCP Family Medicine; Visit Provider Pharmacist
DX: O26.899 Other specified pregnancy related conditions, unspecified trimester (principal); Z3A.00 Weeks of gestation of pregnancy not specified
CPT/HCPCS: 59025; 99211

== ENCOUNTER 2023-07-26 08:39 | Outpatient (CLI) | payer SELFPAY ==
[2023-07-26 08:39] VITALS: BMI 24.3
[2023-07-26 08:49] VITALS: BP 112/64; PULSE 90
[2023-07-26 09:04] VITALS: BP 118/65; PULSE 83
[2023-07-26 09:15] VITALS: BP 118/65; PULSE 83
== END 2023-07-26 09:15 ==
LOC: OPOB 08:44 → OBGYN 08:45
PROVIDERS: PCP Family Medicine; Visit Provider Obstetrics & Gynecology
DX: O26.899 Other specified pregnancy related conditions, unspecified trimester (principal); Z3A.00 Weeks of gestation of pregnancy not specified; Z87.59 Personal history of other complications of pregnancy, childbirth and the puerperium
CPT/HCPCS: 59025

== ENCOUNTER 2023-07-29 12:13 | Outpatient (CLI) | payer SELFPAY ==
[2023-07-29 12:20] VITALS: BMI 24.7
[2023-07-29 12:23] VITALS: BP 118/60; PULSE 94; RESP 16
[2023-07-29 12:29] VITALS: RESP 16
--- NOTE | 2023-07-29 12:29 | US_ITS ---
WS: [id number] BIOPHYSICAL PROFILE AND LIMITED OB. HISTORY: history of demise COMPARISON: 07/22/2023 Presentation: position is not documented. The head is not at the cervix. Cervix: Closed and normal length. Placenta: Posterior and fundal. Grade: 1 HEART: FHR of 139BPM. measurements: BPD = 8.6 cm = 34w5d; 64% HC = 30.8 cm = 34w3d; 20% AC = 30.0 cm = 34w0d; 50% FL = 6.1 cm = 31w6d; 3% SABINO: 18.0 cm EFW: 2208.7g; 26% AGA by ultrasound: 33w5d JOHN by ultrasound: 09/11/2023 Seen on the first initial imaging through the lower pelvis is a soft tissue mass which is complex in the anterior uterus surrounded by fluid. This mass measures 2.6 x 2.7 cm. This does not have the appe arance of the umbilical cord or extremity. This should be followed up. Patient has a known two-vessel umbilical cord. Only a few images of the umbilical cord are submitted but the cord appears uncoiled. Biophysical profile: Parameters are as follows: Breathin Movement: 2 Tone: 2 Fluid volume: 2 US/US OB F/U w BPP wo NST IMPRESSION: 1. Biophysical profile score: 8/8. 2. Single intrauterine gestation of 33w5d with an 09/11/2023. Appropriate growt h since the first trimester ultrasound. 3. Two-vessel umbilical cord is a known finding. On the single image submitted of the cord the cord appears uncoiled. This can be associated with increased ri sk for morbidity and mortality of the fetus. 4. Mixed echogenic mass along the anterior lower uterine segment of unknown jules ology. This does not have the appearance of a normal extremity or the umbilical cord. Recommend short-term follow-up and reevaluation.
[2023-07-29 12:45] VITALS: BP 103/64; PULSE 116
[2023-07-29 13:38] VITALS: BP 103/64; PULSE 116
== END 2023-07-29 13:39 ==
LOC: OPOB 12:16 → OBGYN 12:19
PROVIDERS: PCP Family Medicine; Visit Provider Obstetrics & Gynecology
DX: Z36.4 Encounter for antenatal screening for fetal growth retardation (principal); O09.293 Supervision of pregnancy with other poor reproductive or obstetric history, third trimester; O34.219 Maternal care for unspecified type scar from previous cesarean delivery; O99.013 Anemia complicating pregnancy, third trimester; D50.9 Iron deficiency anemia, unspecified; Z3A.34 34 weeks gestation of pregnancy
CPT/HCPCS: 59025; 76816; 76819; 84315

== ENCOUNTER 2023-08-02 23:42 | Outpatient (CLI) | payer MEDICAID, SELFPAY ==
[2023-08-02 23:53] VITALS: BP 120/82; PULSE 80
[2023-08-03 00:08] VITALS: BP 123/76; PULSE 104
[2023-08-03 00:21] VITALS: BMI 24.2
[2023-08-03 00:23] VITALS: BP 136/93; PULSE 94
[2023-08-03 00:37] VITALS: BP 133/76; PULSE 76
[2023-08-03 00:43] LABS: Add Urine Microscopic? YES; Bilirubin Urine Neg (Negative); Blood Urine Neg (Negative); Glucose Urine UA Norm (Normal); Ketones Urine Negative (Negative); Leukocyte Esterase Urine Negative (Negative); Nitrate Urine Negative (Negative); Protein Urine Neg (Negative); Urine Appearance Cloudy (CLEAR); Urine Color Yellow (Yellow); Urobilinogen Urine 4 mg/dL (Negative); pH Urine 6.5 (5-7)
[2023-08-03 00:44] LABS: Add Urine Culture? No; Bacteria Urine 2+ /hpf; Mucus Urine 2+ /hpf; RBC Urine 0-4 /hpf (0-2); Squamous Epithelial Cell Urine 40-55 /hpf (0-5); WBC Urine 0-4 /hpf (0-5)
[2023-08-03 00:53] VITALS: BP 119/70; PULSE 84
[2023-08-03 01:07] VITALS: BP 117/70; PULSE 75
[2023-08-03 01:23] VITALS: BP 112/67; PULSE 74
== END 2023-08-03 01:34 | disposition home or self-care (01) ==
LOC: OPOB 23:44 → OBGYN 23:46
PROVIDERS: PCP Family Medicine; Visit Provider Obstetrics & Gynecology
DX: O26.899 Other specified pregnancy related conditions, unspecified trimester (principal); R10.9 Unspecified abdominal pain
CPT/HCPCS: 59025; 81001; 99211

== ENCOUNTER → 2023-08-05 08:37 | Outpatient (BNVA) | payer MEDICAID, SELFPAY | PROVIDERS: PCP Family Medicine; Visit Provider Obstetrics & Gynecology | DX: Z34.80 Encounter for supervision of other normal pregnancy, unspecified trimester (principal) | CPT/HCPCS: 76819 ==

== ENCOUNTER → 2023-08-12 08:00 | Outpatient (BNVA) | payer MEDICAID, SELFPAY | PROVIDERS: PCP Family Medicine; Visit Provider Obstetrics & Gynecology | DX: Z34.80 Encounter for supervision of other normal pregnancy, unspecified trimester (principal) | CPT/HCPCS: 76815; 76819; 81000; 87081 ==

== ENCOUNTER 2023-08-19 08:23 | Outpatient (CLI) | payer MEDICAID, SELFPAY ==
--- NOTE | 2023-08-19 08:45 | USR_ITS ---
PROCEDURE INFORMATION: Exam: US ; Follow up Exam date and time: 08/19/2023 8:41 AM Age: 27 years old Clinical indication: Screening exam; Routine US, uterus; Additional info: O99.013 - anemia complicating , third trimester LABS AND CLINICAL REPORTS: Gestational age (Established): 37 w 1 d Estimated due date (Established): 09/08/2023 TECHNIQUE: Imaging protocol: Transabdominal ultrasound of the uterus, real time with image documentation. Follow-up (eg, re-evaluation of size by measuring standard growth parameters and amniotic fluid volume, re-evaluation of organ system(s) suspected or confirmed to be abnormal on a previous scan). COMPARISON: US OB lmt w/ BPP wo NST 08/12/2023 8:03 AM FINDINGS: Gestation: Single viable IUP in cephalic presentation. Placenta is located posteriorly. Gestational age is 36 weeks 6 days with an JOHN of 09/10/2023. heart rate: 138 bpm BIOMETRY: Estimated weight: 3005.6 g. EFW by AC, BPD, FL, HC, Hadlock 1985 45th percentile Biparietal diameter (BPD): 9.21 cm. EGA (BPD) is 37 w 3 d. 73.4 % percentile Head circumference (HC): 33.42 cm. EGA (HC) is 38 w 1 d. 50.5 % percentile Abdominal circumference (AC): 33.13 cm. EGA (AC) is 37 w 0 d. 61.7 % percentile Femur length (FL): 6.8 cm. EGA (FL) is 35 w 0 d. 6.3 % percentile HC/AC: 1.01. (Normal range: 0.92 - 1.05) FL/HC: 20.35. (Normal range: 20.7 - 22.53) FL/BPD: 73.83. (Normal range: 71 - 87) FL/AC: 20.53. (Normal range: 20 - 24) US/US OB F/U w BPP wo NST IMPRESSION: Unremarkable viable IUP at 36 weeks 6 days
== END 2023-08-19 08:24 | disposition home or self-care (01) ==
LOC: RAD 08:23
PROVIDERS: PCP Family Medicine; Visit Provider Obstetrics & Gynecology
DX: O99.013 Anemia complicating pregnancy, third trimester (principal); O34.219 Maternal care for unspecified type scar from previous cesarean delivery; O09.299 Supervision of pregnancy with other poor reproductive or obstetric history, unspecified trimester; Z3A.38 38 weeks gestation of pregnancy
CPT/HCPCS: 76816; 76819

== ENCOUNTER → 2023-08-26 07:53 | Outpatient (BNVA) | payer MEDICAID, SELFPAY | PROVIDERS: PCP Family Medicine; Visit Provider Obstetrics & Gynecology | DX: Z34.80 Encounter for supervision of other normal pregnancy, unspecified trimester (principal) | CPT/HCPCS: 76819; 84315 ==

== ENCOUNTER 2023-09-01 06:04 | Inpatient (IN) | payer MEDICAID, SELFPAY ==
--- NOTE | 2023-08-26 10:09 | ANES.PREANE2 ---
Pre-Anesthetic Assessment Height/Weight: Height 1.68 m Operation Date: 09/01/23 07:20 Proposed Procedures p Section Repeat With Tubal 33934, 50714, O34.219, Z30.2(Bilateral) - Alex Arellano MD Familial anesthetic complications: none Last intake: MN Social No alcohol and No tobacco Exam alert, oriented x 3, clear to auscultation bilaterally and regular rate & rhythm Airway Submandibular: within normal limits Cervical ROM: within normal limits Mallampati: Class II Dentition: chipped CV/HEM Anemia Neuropsych Depression Anesthetic Plan ASA status: 2 Anesthesia: Regional (specify below) (SAB) Other: Repeat C/S Medications/Allergies Home Medications Medication Instructions Recorded Confirmed Last Taken Type fluoxetine 20 mg tablet 20 mg PO DAILY #90 tabs 01/20/23 08/26/23 08/02/23 Rx vitamin no.102-iron 90 1 cap PO DAILY 01/28/23 08/26/23 08/02/23 History mg-folate 1 mg-dha 200 mg capsule docusate sodium 100 mg tablet 100 mg PO DAILY Constipation #60 07/01/23 08/26/23 08/02/23 Rx tabs ferrous sulfate 325 mg (65 mg 325 mg PO BID Anemia in 07/01/23 08/26/23 08/02/23 Rx iron) tablet 30 days #60 tabs Allergies Allergy/AdvReac Type Severity Reaction Status Date / Time hydrocodone Allergy ADR-Depress Verified 08/26/23 06:51 ion [facility] Anesthesia Medical History No pertinent past medical history neghx: htn,dm,thryoid,dvt/pe PCP: Dr. Espinosa Psychiatric care Surgical History History of 3 sections 1--->2017 emergency csection due to NRFHR delivered [place] [facility] [place], [place] 2--->2017 repeat csection at 39 weeks, delivered by Dr. Arellano at [facility] [place] 3---> 06/20/2022. Emergency repeat section at 26-28 weeks gestation (estimated based on Frazier score) Twin : baby A Female was IUFD footling breech presentation. Baby B female was viable, premature in vertex presentation with polyhydramnios. The baby at 4 days old. complicated by no care. Delivered by Dr. Lama at [facility] Family History Grandfather Diabetes paternal Other Hyperlipidemia Hypertension Lung disease Stroke Denies family history of Colon cancer Ovarian cancer Prostate cancer CAD (coronary artery disease) Clotting disorder Dementia Heart disease Psychiatric illness Chronic kidney disease (CKD) Breast cancer Anesthesia complication Bleeding disorder Uterine cancer Thyroid disease Data Anesthesia Cardiac Studies: No Data to Display
[2023-09-01] VITALS (56 sets, daily range): BP systolic 99–130; BP diastolic 55–86; PULSE 51–68; RESP 14–16; TEMP 36.4; O2SAT 98–100; BMI 25.7
[2023-09-01] MEDS: lactated ringers 1,000 ML 999 ML IV (06:30)
--- NOTE | 2023-09-01 06:52 | P.ANESUD_ITS ---
Pre-Anesthetic Update Pre-Anesthetic Assessment: Date of Surgery/Procedure: 09/01/23 Preop Ginette gnosis: previous section Proposed Procedure: Operation Date: 09/01/23 07:20 Proposed Procedures p Section Repeat With Tubal 77667, 16357, O34.219, Z30.2(Bilateral) - Alex Arellano MD Any changes to Pre-Anesthetic Assessment?: No Last Intake: 1700 Last Intake: 17:00 Vitals: Pulse Rate 68 09/01/23 06:21 Pulse Rhythm Regular 09/01/23 06:13 Pulse Strength 3+ Normal 09/01/23 06:13 Respiratory Effort Spontaneous, Non- Labored 09/01/23 06:13 Respiratory Depth Normal 09/01/23 06:13 Respiratory Patter n Normal 09/01/23 06:13 Blood Pressure 130/86 09/01/23 06:21 Oxygen Delivery Me thod Room Air 09/01/23 06:13 Exam: Pre-Anes Outpt Exam: alert, oriented x 3, clear to auscultation bilaterally and regular rate & rhythm Other Pertinent Information: Other Pertinent Information: Spoke with pt on risk and benefits of SAB and consent noted Cardiac Studies: No Data to Display
[2023-09-01 07:11] LABS: Basophils % 0.4 %; Eosinophils % 0.4 %; Hematocrit 34.7 % (36-47); Lymphocytes # 2.7 10^3/uL (0.8-4.8); Lymphocytes % 29.8 %; Mean Corpuscular HGB Conc 31.7 g/dL (30-55); Mean Corpuscular Hemoglobin 26.8 pg (27-33); Mean Corpuscular Volume 84.6 fl (85-98); Mean Platelet Volume 11.3 fL (7.4-10.4); Monocytes # 0.6 10^3/uL (0.2-0.9); Monocytes % 6.6 %; Neutrophils # 5.58 10^3/uL (1.8-7.7); Neutrophils % 62.5 %; Nucleated Red Blood Cells % 0 %; Platelet Count 269 10^3/cmm (157-399); Red Cell Distribution Width 15.8 % (12.1-15.1); White Blood Count 8.95 10^3/uL (3.29-11.43)
[2023-09-01] MEDS: metoclopramide 5 mg/mL SDV 2 mL 10 MG IVP (07:31)
[2023-09-01] MEDS: citric acid-sodium citrate 30 mL UDC PO (07:31)
[2023-09-01] MEDS: famotidine 20 mg/2 mL INJ IVP (07:31)
[2023-09-01] MEDS: ceFAZolin 2,000 MG in sodium chloride 0.9% (plus) 50 ML 100 MG IV (07:34)
[2023-09-01] MEDS: BUPIVACAINE LIPOSOME/PF 266 MG, BUPivacaine 0.25% 30 ML in sodium chloride 0.9% 50 ML 50 MG INFILTRATI (08:45)
--- NOTE | 2023-09-01 09:15 | PM.OPHPUD ---
Labor & Delivery H&P Update Date of Procedure: September 01, 2023 Date H&P Performed: 08/26/23 H&P update information: I have reviewed H&P completed within last 30 days, I have examined patient prior to procedure and No changes to prior documentation Admission Diagnosis: Preop diagnosis: previous section Planned procedure: Operation Date: 09/01/23 07:20 Proposed Procedures p Section Repeat With Tubal 24721, 04675, O34.219, Z30.2(Bilateral) - Alex Arellano MD
--- NOTE | 2023-09-01 09:16 | P.OP_ITS ---
Operative Report Date of procedure: September 01, 2023 Pre-op diagnosis: Term Previous delivery Desires permanent sterilization Breech presentation Post-op diagnosis: Term Status post repeat low-transverse delivery Status post bilateral salpingectomy Procedure done: Repeat low-transverse delivery Bilateral salpingectomy Specimens removed/disposition: Left and right fallopian tubes Surgeon: Alex Arellano MD Estimated blood loss (mL): 1,200 IV fluids (mL): 1,200 Complications: Bleeding Procedure: After assuring informed consent, the patient was taken to the operating room and anesthesia was initiated. She was placed in the dorsal supine position with a left lateral tilt. The abdomen was prepped and draped in the usual sterile manner. A time-out procedure was performed. Preop antibiotics was administered. A Pfannenstiel skin incision was made with the scalpel and carried through to th e underlying layer of fascia with the Bovie. The fascia was nicked in the midline and the incision extended laterally with the Marie scissors. The superior aspect of the fascial incision was then grasped with Melissa clamps and elevated and the underlying rectus muscle dissected off bluntly and sharp with marie scissors dense adhesions. Attention was then turned to the inferior aspect of the incision which, in similar fashion, was grasped and tented up with Melissa clamps and the rectus muscle dissected bluntly. The rectus muscles were then in the midline and the peritoneum identified, tented up and entered sharply with Metzenbaum scissors. The peritoneal incision was then extended superiorly and inferiorly with good visualization of the bladder. The Precy O retractor was then inserted and the vesicouterine peritoneum identified, grasped with pickups and entered sharply with Metzenbaum scissors. This incision was then extended laterally and the bladder flap created digitally. The uterus incised in a low transverse fashion with the scalpel. The uterine incision was then extended with the bandage scissors. The infant was then delivered in the cephalic presentation atraumatically. The nose and the mouth were suctioned with bulb and the cord clamped and cut. The cord was normal and had three vessels. Amniotic fluid was clear. The placenta was then removed manually and the uterus exteriorized and cleared of all clots and debris. The uterine incision was repaired with 0 Vicryl in a running-locked fashion. A second layer of the same suture was used to obtain excellent hemostasis. The gutters were cleared of all clots. The left fallopian tube was identified and grasped with a Belt clamp. The tube was then followed out to the fimbria. An avascular midsection of the fallopian tube was grasped with a Ted clamp. Using the LigaSure find sealing device the tube was sealed and transected. The specimen was sent to pathology. Excellent hemostasis was noted. The same procedure was performed on the opposite fallopian tube. The uterus was then returned to the abdomen. The rectus muscles were approximated with 3-0 chromic gut. The ON-Q pain ma nagement system placed. The fascia was reapproximated with 0 Vicryl in an interrupted running fashion. The skin was closed with Insorb?s subcuticular absorbable ximena. The patient tolerated the procedure well. The sponge, lap and needle counts were correct times three.
[2023-09-01] MEDS: dextrose 5%-lactated ringers 1,000 ML 125 ML IV ×2 (09:56→14:44)
[2023-09-01] MEDS: ketorolac 30 mg/mL INJ IVP ×2 (14:44→20:23)
[2023-09-01] MEDS: simethicone 80 mg Chew PO (15:32)
--- NOTE | 2023-09-01 17:14 | PC.NURSE ---
09/01/23 1545: Patient ambulating in juan with RN at this time. Patient walked 2 laps around OB unit; tolerated well.
[2023-09-01] MEDS: ferrous sulfate EC 325 mg Tablet PO (20:24)
[2023-09-01] MEDS: docusate sodium 100 mg Capsule PO (20:24)
[2023-09-01 20:44] LABS: Hematocrit 27.8 % (36-47); Mean Corpuscular Hemoglobin 26.8 pg (27-33); Mean Corpuscular Volume 83.7 fl (85-98); Mean Platelet Volume 10.2 fL (7.4-10.4); Platelet Count 217 10^3/cmm (157-399); Red Blood Count 3.32 10^6/uL (3.85-5.65); Red Cell Distribution Width 15.8 % (12.1-15.1); White Blood Count 9.33 10^3/uL (3.29-11.43)
[2023-09-02 01:19] VITALS: BP 118/62; PULSE 64
[2023-09-02 04:07] VITALS: BP 117/74; PULSE 76
[2023-09-02] MEDS: ketorolac 30 mg/mL INJ IVP (04:07)
[2023-09-02 07:24] VITALS: BP 131/77; PULSE 72
--- NOTE | 2023-09-02 08:19 | P.PN_ITS ---
Subjective 2 Subjective: Ms. Samson is a 27 year old status post repeat low-transverse delivery day 1. Refers feeling fine. Vitals/I&O/Wt Last Vital Signs Temp 97.6 F 09/01/23 09:30 Pulse 72 09/02/23 07:24 Resp 16 09/01/23 09:30 BP 131/77 09/02/23 07:24 Pulse Ox 98 09/01/23 12:09 O2 Del Method Room Air 09/01/23 09:30 09/01/23 09/02/23 09/02/23 22:59 06:59 14:59 Intake Total 751.583 / 3701.583 Output Total 800 / 2450 600 / 3050 Balance -48.417 / 1251.583 -600 / 651.583 Weight last 48 hrs Weight 72.121 kg Physical Exam 2 Narrative: GA: Alert and oriented ?3. HEENT: WNL. Breasts: engorged Nipples - skin intact Heart: Regular rate and rhythm. Lungs: Clear to auscultation bilaterally. Abdomen: Bowel sounds present, nontender, minimal tenderness, incision clean and dry, no redness, pain or edema. [employer]OFESSIONAL: normal lochia. Extremities: No edema, no cyanosis, no calves pain. Urinary Catheter Management: Nair: Cath Placed During This Visit: yes, but has since been removed by the nurse Reason for Continuing Indwelling Catheter: Decision to DC Catheter Urinary Catheter Date of Insertion: 09/01/23 Urinary Catheter Time of Insertion: 07:50 Date Urinary Catheter Removed: 09/01/23 Time Urinary Catheter Discontinued: 19:40 Data 09/01/23 20:30 A&P Assessment and plan (1) delivery, delivered, current hospitalization: Mrs. Samson 27-year-old female G4, P2 status post repeat low-transverse delivery postoperative day 1. She is afebrile hemodynamically stable. Tolerating diet well. Pain well under control. Ambulating without difficulty. Plan Continue postoperative observation. Attestations 2 Medical Necessity Statement*: In my professional opinion poor admitting diagnosis. Coding Level of Care Code Acute Code for Chg Fwd Diagnoses delivery, delivered, current hospitalization O82
[2023-09-02] MEDS: docusate sodium 100 mg Capsule PO ×2 (09:53→20:49)
[2023-09-02] MEDS: PRENATAL VIT NO.130/IRON/FOLIC 1 EACH TABLET PO (09:53)
[2023-09-02] MEDS: ferrous sulfate EC 325 mg Tablet PO ×2 (09:54→20:48)
[2023-09-02] MEDS: ibuprofen 800 mg tablet PO ×3 (09:58→20:48)
[2023-09-02] MEDS: HYDROcodone-acetaminophen 5-325 mg Tablet PO (12:37)
[2023-09-02 14:00] VITALS: RESP 16; TEMP 36.8
[2023-09-02 14:01] VITALS: BP 121/70; PULSE 90
[2023-09-02 20:48] VITALS: BP 108/64; PULSE 78
[2023-09-02] MEDS: acetaminophen 325 mg Tablet 650 MG PO (22:17)
[2023-09-03 04:10] VITALS: BP 119/73; PULSE 76
[2023-09-03 06:15] VITALS: RESP 18
[2023-09-03] MEDS: ferrous sulfate EC 325 mg Tablet PO (08:58)
[2023-09-03] MEDS: docusate sodium 100 mg Capsule PO (08:58)
[2023-09-03] MEDS: ibuprofen 800 mg tablet PO (08:58)
[2023-09-03 08:59] VITALS: BP 123/70; PULSE 92; TEMP 36.4
[2023-09-03] MEDS: PRENATAL VIT NO.130/IRON/FOLIC 1 EACH TABLET PO (08:59)
--- NOTE | 2023-09-03 10:43 | P.DS_ITS ---
Discharge Providers [employer] Date of Admission: 09/01/23 06:04 Date of Discharge: 09/03/23 Attending Provider at Admission: Alex Arellano MD Attending Provider at Discharge: Alex Arellano MD Primary Care Provider: Royer Espinosa MD Diagnoses at Discharge Discharge Diagnosis (1) delivery, delivered, current hospitalization: Status: Acute Reason for Visit Reason for Visit: Epi Consult Hospital Course Hospital Course Ms. Samson is a 27 year old established patient with LMP of 12/14/2022, JOHN 09/08/23 based off of 12 week dating ultrasound. Admitted to labor and delivery at 39 weeks for repeat low-transverse delivery and bilateral s alpingectomy. The procedures were performed without complication. She is afebrile hemodynamically stable postoperative day 2. Tolerating diet well. Ambulating without difficulty. She was counseled regarding pelvic rest for 6 weeks (no sex, no tampons, no vaginal douches). Return to the emergency room if any fever, increased bleeding or pain. Information Peripartum Data: Infant Delivery Method: Physical Exam Narrative: GA: Alert and oriented ?3. HEENT: WNL. Breasts: engorged Nipples - skin intact Heart: Regular rate and rhythm. Lungs: Clear to auscultation bilaterally. Abdomen: Bowel sounds present, nontender, minimal tenderness, incision clean and dry, no redness, pain or edema. BUTCHER: normal lochia. Extremities: No edema, no cyanosis, no calves pain. History History History 4 Term 2 1 Miscarriages/Ectopic 0 Living Children 2 Discharge Data Studies Completed and Pending Pending at discharge Category Date Time Status Antibody Identification Routine Lab 09/01/23 06:28 Results Leukocyte Reduced RBC Routine Lab 09/01/23 06:28 Results Type and Screen Routine Lab 09/01/23 06:28 Results Pathology: Surgical [PTH] Stat Pth 09/01/23 12:54 Received Laboratory Results WBC 9.33 10^3/uL (3.29-11.43) 09/01/23 20:30 RBC 3.32 10^6/uL (3.85-5.65) L 09/01/23 20:30 Hgb 8.90 g/dL (11.27-16.99) L 09/01/23 20:30 Hct 27.8 % (36-47) L 09/01/23 20:30 MCV 83.7 fl (85-98) L 09/01/23 20:30 MCH 26.8 pg (27-33) L 09/01/23 20:30 MCHC 32.0 g/dL (30-55) 09/01/23 20:30 RDW 15.8 % (12.1-15.1) H 09/01/23 20:30 Plt Count 217 10^3/cmm (157-399) 09/01/23 20:30 MPV 10.2 fL (7.4-10.4) 09/01/23 20:30 Neut % (Auto) 62.5 % 09/01/23 06: Lymph % (Auto) 29.8 % 09/01/23 06: Chaffee % (Auto) 6.6 % 09/01/23 06: Eos % (Auto) 0.4 % 09/01/23 06: Baso % (Auto) 0.4 % 09/01/23: Neut # (Auto) 5.58 10^3/uL (1.8-7.7) 09/01/23 06: Lymph # (Auto) 2.7 10^3/uL (0.8-4.8) 09/01/23 06: Chaffee # (Auto) 0.6 10^3/uL (0.2-0.9) 09/01/23 06: Eos # (Auto) 0.0 10^3/uL (0.0-0.8) 09/01/23: Baso # (Auto) 0.0 10^3/uL (0.0-0.1) 09/01/23: Nucleated RBC % (auto) 0 % 09/01/23: Nucleated RBCs # 0.0 /100WBC 09/01/23: Blood Type A Positive 09/01/23: Rho(D) Type Rh positive 09/01/23 06:28 Antibody Screen Positive 09/01/23: Antibody Identification Anti-c 09/01/23: Crossmatch See Detail 09/01/23 06: Vitals Last Vital Signs Temp 97.6 F 09/03/23 08:59 Pulse 92 09/03/23 08:59 Resp 18 09/03/23 06:15 BP 123/70 09/03/23 08:59 Pulse Ox 98 09/01/23 12:09 O2 Del Method Room Air 09/01/23 09:30 Results Labs OB ([facility]): Obstetrics US 08/19/23 Obstetrics US/Biophysical Profile Blood Type A Positive 09/01/23 Antibody Screen Positive 09/01/23 Hct 27.8 % (36-47) L 09/01/23 Hgb 8.90 g/dL (11.27-16.99) L 09/01/23 Rho(D) Type Rh positive 09/01/23 Plt Count 217 10^3/cmm (157-399) 09/01/23 Hep Bs Antigen Non-reactive (Nonreactive) 02/26/23 Hepatitis C Antibody Non-reactive (Nonreactive) 02/26/23 Rubella IgG Antibody 18.8 IU/mL (0.0-10.0) H 02/26/23 RPR Nonreactive (Nonreactive) 02/26/23 HIV 1&2 Ab & HIV 1 Ag Non-reactive (Non-Reactiv) 06/21/22 TSH 2.83 uIU/mL (0.27-4.20) 06/29/22 Free T4 1.42 ng/dL (0.82-1.77) 06/29/22 C.trachomatis RNA (TMA) Not detected (NOT DETECTED) N.gonorrhoeae RNA (TMA) Not detected (NOT DETECTED) T. vaginalis Amp RNA Not detected (NOT DETECTED) 03/04/23 Chlamydia/GC Comment See note 03/04/23 Glucose 1 Hr 50 gm 87 mg/dL (85-140) 05/19/23 Ser , Semi-Qnt 28775.00 mIU/mL 01/20/23 HCG, Qual Positive (Negative) H 01/28/23 Urine Opiates Screen Negative ng/mL (Negative) 02/26/23 Ur Barbiturates Screen Negative ng/mL (Negative) 02/26/23 Ur Phencyclidine Scrn Negative ng/mL (Negative) 02/26/23 Ur Amphetamines Screen Negative ng/mL (Negative) 02/26/23 U Benzodiazepines Scrn Negative ng/mL (Negative) 02/26/23 Urine Cocaine Screen Negative ng/mL (Negative) 02/26/23 U Marijuana (THC) Screen Negative ng/mL (Negative) 02/26/23 Micro Urine Specimen 02/26/23 Pap Smear Interpret See note 03/04/23 Discharge Plan Discharge Patient Disposition: Home Condition: Stable Prescriptions: New hydrocodone-acetaminophen 5-325 mg tablet 1 tab PO Q4H PRN (Reason: pain) Qty: 20 0RF docusate sodium [Colace] 100 mg capsule 100 mg PO BID Qty: 60 0RF ibuprofen 800 mg tablet 800 mg PO TID PRN (Reason: pain) Qty: 60 0RF acetaminophen 325 mg capsule 325 mg PO Q4H PRN (Reason: fever or pain) Qty: 60 0RF ferrous sulfate [Iron (ferrous sulfate)] 325 mg (65 mg iron) tablet 325 mg PO BID Qty: 60 0RF Continued fluoxetine 20 mg tablet 20 mg PO DAILY Qty: 90 1RF PNV 325-otlm-hfiebi-dha 90 mg iron- 1 mg-200 mg capsule 1 cap PO DAILY ferrous sulfate 325 mg (65 mg iron) tablet 325 mg PO BID 30 Days Qty: 60 3RF docusate sodium 100 mg tablet 100 mg PO DAILY Qty: 60 0RF Discharge Orders: Discharge Order (Routine); Ordered 09/03/23 Ordered By: Alex Arellano Referrals: Alex Arellano MD [Physician] - 2 weeks Discharge Diet: Usual diet Discharge Activity: Limit activity as instructed Patient Instructions: Depression (DC), Opioid Safety (DC), Preeclampsia and Eclampsia After Delivery (GEN), Hemorrhage (DC), OB [facility], OB Discharge Report, OB Food/Drug Interaction Guide, Opioid Safety, OB Home Care, Abnormal Bleeding Activity Restrictions/Additional Instructions: 1. Please call [facility] clinic on next working day to make your post-operative appointment in 2 weeks and visit at 6 weeks. 2. Please stay home until you come back to the clinic on first post- hospatilization check up. 3. Please follow instructions on your medications CAREFULLY. 4. If you have abdominal incision, do not cover it unless dressing is necessary because of drainage. OK to shower, but avoid bath. Leave steri-strips until they fall off. If they are still on one week after surgery, you may remove them. 5. If you had vaginal surgery or vaginal repair, Dr. Arellano may instruct you to take SITZ bath. 6. Yellow, blood tinged odorous vaginal discharge is usually normal after hysterectomy or vaginal surgeries. 7. No SEXUAL INTERCOURSE, tampons, or douches until you are completely released from the post-operative care. 8. Avoid constipation by eating right and maybe using some Metamucil or Milk of Magnesia. 9. All prescription refills are given during the working hours. Please do no wait till it runs out. Call the clinic at [phone] before your medication runs out. The clinic will get in touch with your doctor to prescribe medications if necessary. 10. Please remain within 40 mile radius from our hospital because emergencies do happen now and then during the post-operative period. 11. If you have stairs at home, take one step at a time slowly and minimize the number of trips. It helps to stay in one floor for the next few days. No lifting except what you can lift by one hand until you are released from the post-operative care. 12. Driving is discouraged until you are well healed. It may be 3-4 weeks before you feel strong enough to drive. You should be able to turn and look through the rear window without pain and you should be able to push the brake pedal very hard without pain before you drive. No fast rules, but SAFETY should be your primary concern. DO NOT drive if you are on sedating medications such as narcotics. 13. Call the clinic (during working hours) to make urgent appointment or go to the Emergency room, if any of the following occurs: i. Vaginal bleeding becomes heavy, more than a period. ii. Incision becomes red and sore, or drains pus. iii. Your TEMPERATURE is over 100.4F or you have chill. iv. IV site becomes red and swollen (a little ``knot?? is usually OK) v. Persistent nausea and vomiting vi. Persistent constipation or diarrhea vii. Rash or allergic reaction to medications. Discharge Attestations [employer] Time Spent in Discharge Care*: greater than 30 min Coding Level of Care Code Acute Code for Chg Fwd Diagnoses delivery, delivered, current hospitalization O82
[2023-09-03 11:48] VITALS: BP 123/68; PULSE 88
[2023-09-03 11:54] VITALS: BP 123/68; PULSE 88
== END 2023-09-03 11:54 | disposition home or self-care (01) | DRG 785 ==
PROVIDERS: Admitting Provider Obstetrics & Gynecology; PCP Family Medicine; Visit Provider Obstetrics & Gynecology
PROC: 10D00Z1 Extraction of Products of Conception, Low, Open Approach (ICD-10-PCS; CPT 59514; principal; 2023-09-01 07:00)
DX: O34.211 Maternal care for low transverse scar from previous cesarean delivery (principal); N85.8 Other specified noninflammatory disorders of uterus; Z3A.39 39 weeks gestation of pregnancy; Z37.0 Single live birth; Z30.2 Encounter for sterilization; O32.1XX0 Maternal care for breech presentation, not applicable or unspecified
CPT/HCPCS: 36415; 51702; 59025; 59409; 85025; 85027; 86850; 86870; 86900; 86902; 86920; 88302; 96374; 96376; 99211; C9290; J0690; J1885; J2274; J2765; J3490; J7030; J7120; J7121

== ENCOUNTER → 2023-12-05 12:54 | Outpatient (BNVA) | payer MEDICAID, SELFPAY | PROVIDERS: PCP Family Medicine; Visit Provider Nurse Practitioner | DX: J02.9 Acute pharyngitis, unspecified (principal) | CPT/HCPCS: 87880 ==

== ENCOUNTER → 2023-12-28 09:56 | Outpatient (BNVA) | payer MEDICAID, SELFPAY | PROVIDERS: PCP Family Medicine | DX: R22.31 Localized swelling, mass and lump, right upper limb (principal); M79.641 Pain in right hand | CPT/HCPCS: 73130 ==

== ENCOUNTER → 2024-06-23 10:43 | Outpatient (BNVA) | payer MEDICAID, SELFPAY | PROVIDERS: PCP Family Medicine; Visit Provider Family Medicine | DX: M25.531 Pain in right wrist (principal) | CPT/HCPCS: 73110 ==

== ENCOUNTER 2024-08-20 06:59 | Emergency (ER) | payer MEDICAID, SELFPAY ==
[2024-08-20 07:17] VITALS: BP 131/64; PULSE 92; RESP 17; TEMP 36.7; O2SAT 98; BMI 22.4
[2024-08-20 07:50] LABS: Basophils % 0.7 %; Eosinophils # 0.1 10^3/uL (0.0-0.8); Eosinophils % 1.5 %; Hematocrit 36.4 % (36-47); Lymphocytes # 2.5 10^3/uL (0.8-4.8); Lymphocytes % 40.4 %; Mean Corpuscular HGB Conc 31.3 g/dL (30-55); Mean Corpuscular Hemoglobin 27.3 pg (27-33); Mean Corpuscular Volume 87.3 fl (85-98); Mean Platelet Volume 10.1 fL (7.4-10.4); Monocytes # 0.7 10^3/uL (0.2-0.9); Monocytes % 10.7 %; Neutrophils # 2.86 10^3/uL (1.8-7.7); Neutrophils % 46.5 %; Nucleated Red Blood Cells % 0 %; Platelet Count 299 10^3/cmm (157-399); Red Blood Count 4.17 10^6/uL (3.85-5.65); Red Cell Distribution Width 13.7 % (12.1-15.1); White Blood Count 6.14 10^3/uL (3.29-11.43)
[2024-08-20 08:12] LABS: Anion Gap 12.8 (5-19); Blood Urea Nitrogen 10 mg/dL (6-20); Calcium 9.1 mg/dL (8.5-10.5); Carbon Dioxide 26 mmol/L (22-29); Chloride 103 mmol/L (98-107); Glomerular Filtration Rate 84.8 mL/min (90-130); Glucose 90 mg/dL (65-115); Osmolality Calculated 285 mOsm/kg (285-295); Potassium 3.8 mmol/L (3.5-5.1); Sodium 138 mmol/L (136-145)
--- NOTE | 2024-08-20 08:16 | CTR_ITS ---
PROCEDURE INFORMATION: Exam: CT Head Without Contrast Exam date and time: 08/20/2024 8:35 AM Age: 28 years old Clinical indication: Pain; Headache; Additional info: MILLER TECHNIQUE: Imaging protocol: Computed tomography of the head without contrast. Radiation optimization: All CT scans at this facility use at least one of these dose optimization techniques: automated exposure control; mA and/or kV adjustment per patient size (includes targeted exams where dose is matched to clinical indication); or iterative reconstruction. COMPARISON: No relevant prior studies available. RADIATION DOSE METRICS: Total DLP (mGy-cm): 1017.04 FINDINGS: Brain: There is no evidence of acute parenchymal hemorrhage, extra-axial collection, or acute infarction. There is no mass effect, midline shift, or downward herniation. Cerebral ventricles: No ventriculomegaly. Paranasal sinuses: Visualized sinuses are unremarkable. No fluid levels. Mastoid air cells: Visualized mastoid air cells are well aerated. Bones: Unremarkable. No acute fracture. Soft tissues: Unremarkable. CT/CT head wo con* [id number] IMPRESSION: No acute intracranial abnormality.
--- NOTE | 2024-08-20 08:18 | W.ED.NEUROSD ---
HPI - Neuro Symptoms/Deficit General: Chief Complaint: Neuro Symptoms/Deficit Stated Complaint: facial numbness Time Seen by Provider: 08/20/24 07:38 Source: patient Mode of arrival: ambulatory Limitations: no limitations History of Present Illness: 28-year-old female who states that over the last week she has been having some intermittent headaches has had a history of migraines the past states she has had some numbness down her face as well. She denies any weakness denies any slurred speech. Has a mild headache currently Associated symptoms: Reports headache(s); Deny chest pain, nausea or vomiting Related Data Previous Rx's ?Medication ?Instructions ?Recorded fluticasone propionate 50 2 spray intranasal DAILY #16 grams 03/14/24 mcg/actuation nasal spray,suspension (Flonase Allergy Relief) diclofenac sodium 1 % topical gel 4 g topical QID #100 grams 06/23/24 (Voltaren Arthritis Pain) fluoxetine 40 mg capsule 40 mg PO DAILY #60 caps 07/19/24 Allergies Allergy/AdvReac Type Severity Reaction Status Date / Time hydrocodone Allergy ADR-Depress Verified 07/19/24 10:08 ion Review of Systems Const: Denies: fever(s), chills, body aches or change in appetite ENMT: Denies: throat pain or dental pain Card: Denies: chest pain Resp: Denies: dyspnea GI: Denies: abdominal pain, nausea, vomiting or diarrhea Musc: Denies: neck pain or back pain Skin/Breast: Denies: rash Neuro: Reports: headache(s) and numbness in extremities PFS ED PFSH: Medical History No pertinent past medical history neghx: htn,dm,thryoid,dvt/pe PCP: Dr. Espinosa Surgical History History of 3 sections 1--->2016 emergency csection due to NRFHR delivered at [facility] in [place], [place] 2--->2017 repeat csection at 39 weeks, delivered by Dr. Arellano at [facility] 3---> 06/20/2022. Emergency repeat section at 26-28 weeks gestation (estimated based on Frazier score) Twin : baby A Female was IUFD footling breech presentation. Baby B female was viable, premature in vertex presentation with polyhydramnios. The baby at 4 days old. complicated by no care. Delivered by Dr. Lama at [facility] Family History Grandfather Diabetes paternal Other Hyperlipidemia Hypertension Lung disease Stroke Denies family history of Colon cancer Ovarian cancer Prostate cancer CAD (coronary artery disease) Clotting disorder Dementia Heart disease Psychiatric illness Chronic kidney disease (CKD) Breast cancer Anesthesia complication Bleeding disorder Uterine cancer Thyroid disease Social History Smoking and tobacco/nicotine status: current every day tobacco/nicotine user NIH stroke score NIHSS: Level Of Consciousness - 1a: 0 Level Of Consciousness Questions - 1b: Both Correct Level Of Consciousness Commands - 1c: Both Correct Best Gaze - 2: Normal Visual Ivan - 3: No Visual Loss Facial Palsy - 4: Normal Motor Arm Right - 5: No Drift Motor Arm Left - 5: No Drift Motor Leg Right - 6: No Drift Motor Leg Left - 6: No Drift Limb Ataxia - 7: Absent Sensory - 8: Normal Best Language - 9: No Aphasia Dysarthia - 10: Normal Extinction And Inattention - 11: 0 Score: Total Score: 0 Physical Exam Const: COMMON NORMALS: no acute distress, patient oriented x3 and healthy appearing HENMT: COMMON NORMALS: normocephalic and atraumatic HEAD & SCALP: normocephalic and atraumatic Neck/C-Spine: COMMON NORMALS: full ROM and supple Chest: COMMONS NORMALS: normal inspection of the chest Resp: COMMON NORMALS: normal respiratory effort, No retractions, No use of accessory muscles and clear to auscultation bilaterally AUSCULTATION: clear to auscultation bilaterally Cardio: COMMON NORMALS: regular rate, regular rhythm and No murmurs present (Cardio) RATE: regular rate RHYTHM: regular rhythm Extremity: COMMON NORMALS: normal to inspection and full ROM Neuro: COMMON NORMALS: patient oriented x3, moves all extremities and no focal motor deficits CRANIAL NERVES: Yes CN normal except as noted SPEECH: speech normal GAIT: Yes Normal gait present MOTOR EXAM: 5/5 motor strength present throughout Psych: COMMON NORMALS: mental status grossly normal, Normal thought process present and cooperative THOUGHT PROCESS: Normal thought process present Skin: COMMON NORMALS: no rashes or lesions noted and no wounds GENERAL SKIN EXAM: no rashes or lesions noted Course Vital Signs: Vital signs: Vital Signs Temperature 98.0 F 08/20/24 07:17 Pulse Rate 94 08/20/24 08:53 Respiratory Rate 18 08/20/24 08:53 Blood Pressure 129/71 08/20/24 08:53 Pulse Oximetry 100 08/20/24 08:53 Oxygen Delivery Me thod Room Air 08/20/24 07:17 MDM - Neuro Symptoms/Deficit Medical Decision Making Patient presents here with some paresthesias along with headache her headaches improved. No signs of stroke here patient stable for discharge follow-up PCP return if worsening. Medical Records I reviewed the patient's medical records. Lab Data I reviewed the patient's lab results. 08/20/24 07:43 08/20/24 07:[address] 08/20/24 08:16 IMPRESSION: No acute intracranial abnormality. Laboratory Results WBC 6.14 10^3/uL (3.29-11.43) 08/20/24 07:43 RBC 4.17 10^6/uL (3.85-5.65) 08/20/24 07:43 Hgb 11.40 g/dL (11.27-16.99) 08/20/24 07:43 Hct 36.4 % (36-47) 08/20/24 07:43 MCV 87.3 fl (85-98) 08/20/24 07:43 MCH 27.3 pg (27-33) 08/20/24 07:43 MCHC 31.3 g/dL (30-55) 08/20/24 07:43 RDW 13.7 % (12.1-15.1) 08/20/24 07:43 Plt Count 299 10^3/cmm (157-399) 08/20/24 07:43 MPV 10.1 fL (7.4-10.4) 08/20/24 07:43 Neut % (Auto) 46.5 % 08/20/24 07:43 Lymph % (Auto) 40.4 % 08/20/24 07:43 Branch % (Auto) 10.7 % 08/20/24 07:43 Eos % (Auto) 1.5 % 08/20/24 07:43 Baso % (Auto) 0.7 % 08/20/24 07:43 Neut # (Auto) 2.86 10^3/uL (1.8-7.7) 08/20/24 07:43 Lymph # (Auto) 2.5 10^3/uL (0.8-4.8) 08/20/24 07:43 Branch # (Auto) 0.7 10^3/uL (0.2-0.9) 08/20/24 07:43 Eos # (Auto) 0.1 10^3/uL (0.0-0.8) 08/20/24 07:43 Baso # (Auto) 0.0 10^3/uL (0.0-0.1) 08/20/24 07:43 Nucleated RBC % (auto) 0 % 08/20/24 07:43 Nucleated RBCs # 0.0 /100WBC 08/20/24 07:43 Sodium 138 mmol/L (136-145) 08/20/24 07:43 Potassium 3.8 mmol/L (3.5-5.1) 08/20/24 07:43 Chloride 103 mmol/L (98-107) 08/20/24 07:43 Carbon Dioxide 26 mmol/L (22-29) 08/20/24 07:43 Anion Gap 12.8 (5-19) 08/20/24 07:43 BUN 10 mg/dL (6-20) 08/20/24 07:43 Creatinine 0.8 mg/dL (0.5-0.9) 08/20/24 07:43 GFR Calculation 84.8 mL/min (90-130) L 08/20/24 07:43 Glucose 90 mg/dL (65-115) 08/20/24 07:43 Calculated Osmolality 285 mOsm/kg (285-295) 08/20/24 07:43 Calcium 9.1 mg/dL (8.5-10.5) 08/20/24 07:43 All radiology interpretation(s) finalized by discharge Discharge Plan Discharge Patient Disposition: Home Clinical Impression: Headache, Paresthesia Condition: Stable Prescriptions: No Action fluticasone propionate [Flonase Allergy Relief] 50 mcg/actuation spray,suspension 2 spray intranasal DAILY Qty: 16 0RF Rx Instructions: administer into each nostril diclofenac sodium [Voltaren Arthritis Pain] 1 % gel 4 g topical QID Qty: 100 0RF Rx Instructions: apply to single knee, ankle, foot; for foot includes sole/toes/top of foot fluoxetine 40 mg capsule 40 mg PO DAILY Qty: 60 2RF Discharge Orders: Discharge ED (Routine); Ordered 08/20/24 Ordered By: Arnulfo Anderson Referrals: Royer Espinosa MD [Primary Care Provider, Family Practice] - 4-7 days Discharge Diet: Advance as tolerated Discharge Activity: Resume usual activity Patient Instructions: Paresthesia (ED), General Headache (ED) Print Language: [place] Verde[place] Coding Level of Care Code ED Youth Liaison Officer for Filemon Peres
[2024-08-20] MEDS: sodium chloride 0.9% 1,000 ML 999 ML IV (08:25)
[2024-08-20] MEDS: ketorolac 30 mg/mL INJ IVP (08:25)
[2024-08-20] MEDS: ondansetron 2 mg/ML SDV 2 mL 4 MG IVP (08:25)
[2024-08-20 08:53] VITALS: BP 129/71; PULSE 94; RESP 18; O2SAT 100
[2024-08-20 09:40] VITALS: BP 115/79; PULSE 75; O2SAT 99
== END 2024-08-20 09:41 | disposition home or self-care (01) ==
PROVIDERS: Emergency Provider Emergency Medicine; PCP Family Medicine
DX: R51.9 Headache, unspecified (principal); R20.2 Paresthesia of skin; Z72.0 Tobacco use
CPT/HCPCS: 70450; 80048; 85025; 96361; 96374; 96375; J1885; J2405; J7030